=== PATIENT | female | born 1950 | race Caucasian/White ===

== ENCOUNTER → 2017-02-09 | Outpatient (CLI) | payer MEDICARE, OTHER ==
[~2017-02-09] MED LIST: OMNIPAQUE 350 MG/ML, 100ML BOTTLE ONE
== END | disposition home or self-care (01) ==
LOC: CFH 13:50
PROVIDERS: ATTEND Specialist
DX: C78.7 Secondary malignant neoplasm of liver and intrahepatic bile duct (principal); C77.1 Secondary and unspecified malignant neoplasm of intrathoracic lymph nodes; C56.2 Malignant neoplasm of left ovary; M48.56XA Collapsed vertebra, not elsewhere classified, lumbar region, initial encounter for fracture; N28.1 Cyst of kidney, acquired; E04.2 Nontoxic multinodular goiter
CPT/HCPCS: 71260; 74177; Q9967

== ENCOUNTER 2017-04-10 12:17 | Inpatient (IN) | payer OTHER ==
[~2017-04-10] VITALS: Ht 165.1 cm; Wt 93.9 kg
[2017-04-10] MEDS ORDERED: ONDANSETRON 2MG/ML, 2ML IVPush ONE (13:00)
[2017-04-10] MEDS ORDERED: SODIUM CHLORIDE 0.9% 1,000ML IVBOLUS ONE (13:00)
[2017-04-10] MEDS ORDERED: SODIUM CHLORIDE FLUSH 10ML SYR IVF ONE (13:00)
[2017-04-10] MEDS ORDERED: MORPHINE SULFATE 4 MG/ML, 1ML IVPush PRN (13:00)
[2017-04-10] MEDS ORDERED: ONDANSETRON 2MG/ML, 2ML ONE (13:06)
[2017-04-10 13:08] LABS: HEMATOCRIT 38.2 % (34.6-47.8); HEMOGLOBIN 12.4 g/dL (11.7-16.4)
[2017-04-10 13:20] LABS: ASPARTATE AMINO TRANSFERASE 196 U/L (15-37); BLOOD UREA NITROGEN 26 mg/dL (7-18)
[2017-04-10] MEDS ORDERED: KETOROLAC 30 MG/1 ML ONE (14:09)
[2017-04-10] MEDS ORDERED: KETOROLAC 30 MG/1 ML IVPush ONE (14:30)
[2017-04-10] MEDS ORDERED: CEFTRIAXONE PMX 1GM/50ML 50 ML IV ONE (15:00)
[2017-04-10] MEDS ORDERED: ATOR40TA78 PO (15:51)
[2017-04-10] MEDS ORDERED: SERT25TA PO (15:52)
[2017-04-10] MEDS ORDERED: TRAM50TA2 PO (15:52)
[2017-04-10] MEDS ORDERED: AMLO1CAP PO (15:52)
[2017-04-10] MEDS ORDERED: CEFTRIAXONE PMX 1GM/50ML 50 ML ONE (16:03)
[2017-04-10 16:20] VITALS: BP 111/79
[2017-04-10] MEDS ORDERED: hydrALAzine 20 MG/ML, 1ML IVPush PRN (17:00)
[2017-04-10] MEDS ORDERED: HYDROcodone/APAP 5/325 TABLET PO PRN (17:00)
[2017-04-10] MEDS ORDERED: morphine SULFATE 10 MG/ML, 1ML IVPush PRN (17:00)
[2017-04-10] MEDS: SODIUM CHLORIDE 0.9% 1,000 ML IV SCH (17:49)
[2017-04-10] MEDS: ENOXAPARIN 40 MG/0.4 ML SQ SCH (17:50)
[2017-04-10 19:50] VITALS: BP 133/70
[2017-04-10] MEDS: ATORVASTATIN 40 MG TABLET PO SCH (20:24)
[2017-04-10] MEDS: ONDANSETRON 2MG/ML, 2ML IVPush PRN (20:24)
[2017-04-11] MEDS: TEMAZEPAM 15 MG CAPSULE PO PRN ×2 (00:13→22:20)
[2017-04-11] MEDS: SODIUM CHLORIDE 0.9% 1,000 ML IV SCH ×4 (00:13→20:26)
[2017-04-11 02:35] VITALS: BP 116/81
[2017-04-11] MEDS: ACETAMINOPHEN 325 MG TABLET PO PRN ×2 (02:45→16:10)
[2017-04-11] MEDS: ONDANSETRON 2MG/ML, 2ML IVPush PRN ×3 (02:45→22:20)
[2017-04-11 05:19] LABS: HEMATOCRIT 32.7 % (34.6-47.8); HEMOGLOBIN 10.6 g/dL (11.7-16.4); WHITE BLOOD COUNT 17.7 x10^3/uL (3.4-10)
[2017-04-11 05:28] LABS: ASPARTATE AMINO TRANSFERASE 162 U/L (15-37); BLOOD UREA NITROGEN 30 mg/dL (7-18)
[2017-04-11] MEDS: AMLODIPINE 5 MG TABLET PO SCH (07:24)
[2017-04-11] MEDS: SERTRALINE 50MG TABLET PO SCH (07:24)
[2017-04-11 07:26] VITALS: BP 98/63
[2017-04-11] MEDS: BENAZEPRIL 20 MG TABLET PO SCH (07:26)
[2017-04-11 13:16] VITALS: BP 110/57
[2017-04-11] MEDS: ENOXAPARIN 40 MG/0.4 ML SQ SCH (16:05)
[2017-04-11] MEDS: CEFTRIAXONE PMX 2GM/50ML 50 ML IV SCH (16:06)
[2017-04-11] MEDS ORDERED: POTASSIUM PHOSPHATE 44 MEQ in SODIUM CHLORIDE 0.9% 500 ML IV ONE (17:00)
[2017-04-11] MEDS ORDERED: MAGNESIUM SULFATE PMX 2GM/50ML 50 ML IV ONE (17:00)
[2017-04-11 19:55] VITALS: BP 104/73
[2017-04-11] MEDS: ATORVASTATIN 40 MG TABLET PO SCH (22:21)
[2017-04-12] MEDS: SODIUM CHLORIDE 0.9% 1,000 ML IV SCH ×3 (01:13→15:50)
[2017-04-12 03:12] VITALS: BP 110/76
[2017-04-12] MEDS: ONDANSETRON 2MG/ML, 2ML IVPush PRN ×3 (04:17→19:22)
[2017-04-12 04:31] LABS: HEMOGLOBIN 10.1 g/dL (11.7-16.4); WHITE BLOOD COUNT 13.2 x10^3/uL (3.4-10)
[2017-04-12 04:49] LABS: BLOOD UREA NITROGEN 24 mg/dL (7-18)
[2017-04-12 07:09] VITALS: BP 92/59
[2017-04-12] MEDS ORDERED: OMNIPAQUE 350 MG/ML, 100ML BOTTLE ONE (08:42)
[2017-04-12] MEDS: BENAZEPRIL 20 MG TABLET PO SCH (08:48)
[2017-04-12] MEDS: AMLODIPINE 5 MG TABLET PO SCH (08:48)
[2017-04-12] MEDS: SERTRALINE 50MG TABLET PO SCH (08:49)
[2017-04-12 13:26] VITALS: BP 115/70
[2017-04-12] MEDS: CEFTRIAXONE PMX 2GM/50ML 50 ML IV SCH (15:50)
[2017-04-12] MEDS: ENOXAPARIN 40 MG/0.4 ML SQ SCH (15:59)
[2017-04-12] MEDS: TEMAZEPAM 15 MG CAPSULE PO PRN (19:22)
[2017-04-12] MEDS: ATORVASTATIN 40 MG TABLET PO SCH (19:22)
[2017-04-12 19:35] VITALS: BP 118/80
[2017-04-13] MEDS: SODIUM CHLORIDE 0.9% 1,000 ML IV SCH ×4 (00:16→21:14)
[2017-04-13 01:28] VITALS: BP 114/78
[2017-04-13] MEDS: ONDANSETRON 2MG/ML, 2ML IVPush PRN ×2 (04:07→17:34)
[2017-04-13 04:36] LABS: BLOOD UREA NITROGEN 17 mg/dL (7-18)
[2017-04-13 04:44] LABS: HEMOGLOBIN 9.9 g/dL (11.7-16.4); WHITE BLOOD COUNT 10.8 x10^3/uL (3.4-10)
[2017-04-13 07:26] VITALS: BP 121/83
[2017-04-13] MEDS: AMLODIPINE 5 MG TABLET PO SCH (08:48)
[2017-04-13] MEDS: BENAZEPRIL 20 MG TABLET PO SCH (08:48)
[2017-04-13] MEDS: SERTRALINE 50MG TABLET PO SCH (08:48)
[2017-04-13] MEDS ORDERED: MAGNESIUM SULFATE PMX 2GM/50ML 50 ML IV ONE (09:00)
[2017-04-13] MEDS: POTASSIUM PHOSPHATE 44 MEQ in SODIUM CHLORIDE 0.9% 500 ML IV SCH ×2 (09:28→15:00)
[2017-04-13 13:26] VITALS: BP 117/57
[2017-04-13] MEDS: ENOXAPARIN 40 MG/0.4 ML SQ SCH (16:43)
[2017-04-13] MEDS: CEFTRIAXONE PMX 2GM/50ML 50 ML IV SCH (16:43)
[2017-04-13 18:56] VITALS: BP 100/69
[2017-04-13] MEDS: ATORVASTATIN 40 MG TABLET PO SCH (19:55)
[2017-04-13] MEDS: TEMAZEPAM 15 MG CAPSULE PO PRN (21:15)
[2017-04-14 00:41] VITALS: BP 114/77
[2017-04-14] MEDS: SODIUM CHLORIDE 0.9% 1,000 ML IV SCH ×3 (03:24→20:23)
[2017-04-14 04:35] LABS: HEMATOCRIT 31.2 % (34.6-47.8); HEMOGLOBIN 10.3 g/dL (11.7-16.4); WHITE BLOOD COUNT 9.8 x10^3/uL (3.4-10)
[2017-04-14 04:46] LABS: ASPARTATE AMINO TRANSFERASE 172 U/L (15-37); BLOOD UREA NITROGEN 12 mg/dL (7-18)
[2017-04-14 07:00] VITALS: BP 123/76
[2017-04-14] MEDS ORDERED: POTASSIUM PHOSPHATE 44 MEQ in SODIUM CHLORIDE 0.9% 500 ML IV ONE (08:30)
[2017-04-14] MEDS ORDERED: PHOS250T3 PO (08:32)
[2017-04-14] MEDS ORDERED: MAGN400T26 PO (08:32)
[2017-04-14] MEDS ORDERED: ONDA4TAB13 SL (08:32)
[2017-04-14] MEDS ORDERED: LACT1CAP24 PO (08:32)
[2017-04-14] MEDS ORDERED: CEFD300C37 PO (08:32)
[2017-04-14] MEDS: SERTRALINE 50MG TABLET PO SCH (08:56)
[2017-04-14] MEDS: AMLODIPINE 5 MG TABLET PO SCH (08:56)
[2017-04-14] MEDS: BENAZEPRIL 20 MG TABLET PO SCH (08:56)
[2017-04-14 13:42] VITALS: BP 106/68
[2017-04-14] MEDS: CEFTRIAXONE PMX 2GM/50ML 50 ML IV SCH (15:53)
[2017-04-14] MEDS: ENOXAPARIN 40 MG/0.4 ML SQ SCH (17:47)
[2017-04-14 18:40] VITALS: BP 122/83
[2017-04-14] MEDS: ONDANSETRON 2MG/ML, 2ML IVPush PRN (20:23)
[2017-04-14] MEDS: ATORVASTATIN 40 MG TABLET PO SCH (21:31)
[2017-04-14] MEDS: TEMAZEPAM 15 MG CAPSULE PO PRN (21:31)
[2017-04-15 01:26] VITALS: BP 119/77
[2017-04-15] MEDS: SODIUM CHLORIDE 0.9% 1,000 ML IV SCH ×2 (02:45→11:30)
[2017-04-15 04:49] LABS: BLOOD UREA NITROGEN 11 mg/dL (7-18)
[2017-04-15 08:45] VITALS: BP 131/85
[2017-04-15] MEDS: BENAZEPRIL 20 MG TABLET PO SCH (09:24)
[2017-04-15] MEDS: AMLODIPINE 5 MG TABLET PO SCH (09:24)
[2017-04-15] MEDS: SERTRALINE 50MG TABLET PO SCH (09:24)
[2017-04-15] MEDS: ONDANSETRON 2MG/ML, 2ML IVPush PRN (11:37)
[2017-04-15 14:57] VITALS: BP 114/80
[2017-04-15] MEDS: ENOXAPARIN 40 MG/0.4 ML SQ SCH (18:01)
[2017-04-15 19:37] VITALS: BP 124/84
[2017-04-15] MEDS: ONDANSETRON ODT 4 MG PO PRN (22:05)
[2017-04-15] MEDS: TEMAZEPAM 15 MG CAPSULE PO PRN (22:43)
[2017-04-15] MEDS: CEFDINIR 300 MG CAPSULE PO SCH (22:43)
[2017-04-15] MEDS: ATORVASTATIN 40 MG TABLET PO SCH (22:43)
[2017-04-16 05:10] VITALS: BP 127/79
[2017-04-16 07:38] VITALS: BP 118/64
[2017-04-16] MEDS: CEFDINIR 300 MG CAPSULE PO SCH ×2 (08:00→20:59)
[2017-04-16] MEDS: SERTRALINE 50MG TABLET PO SCH (08:00)
[2017-04-16] MEDS: BENAZEPRIL 20 MG TABLET PO SCH (08:00)
[2017-04-16] MEDS: AMLODIPINE 5 MG TABLET PO SCH (08:00)
[2017-04-16] MEDS: ONDANSETRON ODT 4 MG PO PRN ×3 (11:21→23:47)
[2017-04-16 13:38] VITALS: BP 138/82
[2017-04-16] MEDS: ENOXAPARIN 40 MG/0.4 ML SQ SCH (17:00)
[2017-04-16 19:22] VITALS: BP 135/89
[2017-04-16] MEDS: ATORVASTATIN 40 MG TABLET PO SCH (20:59)
[2017-04-16] MEDS: TEMAZEPAM 15 MG CAPSULE PO PRN (20:59)
[2017-04-17 00:56] VITALS: BP 129/89
[2017-04-17] MEDS: ONDANSETRON ODT 4 MG PO PRN ×3 (06:16→20:09)
[2017-04-17 07:43] VITALS: BP 128/86
[2017-04-17] MEDS: AMLODIPINE 5 MG TABLET PO SCH (08:59)
[2017-04-17] MEDS: CEFDINIR 300 MG CAPSULE PO SCH ×2 (08:59→20:09)
[2017-04-17] MEDS: BENAZEPRIL 20 MG TABLET PO SCH (09:00)
[2017-04-17] MEDS: SERTRALINE 50MG TABLET PO SCH (09:00)
[2017-04-17 15:06] VITALS: BP 108/64
[2017-04-17] MEDS ORDERED: FUROSEMIDE 40 MG TABLET PO ONE (18:30)
[2017-04-17] MEDS ORDERED: FUROSEMIDE 20 MG TABLET PO ONE (18:30)
[2017-04-17] MEDS ORDERED: POTASSIUM CHLORIDE 20 MEQ TAB.ER.PRT PO ONE (18:30)
[2017-04-17] MEDS: ENOXAPARIN 40 MG/0.4 ML SQ SCH (18:38)
[2017-04-17 19:52] VITALS: BP 135/89
[2017-04-17] MEDS: ATORVASTATIN 40 MG TABLET PO SCH (20:09)
[2017-04-17 23:55] VITALS: BP 140/87
[2017-04-18] MEDS: ONDANSETRON 2MG/ML, 2ML IVPush PRN (02:30)
[2017-04-18] MEDS: ONDANSETRON ODT 4 MG PO PRN ×4 (02:33→19:57)
[2017-04-18 08:18] VITALS: BP 133/88
[2017-04-18] MEDS: SERTRALINE 50MG TABLET PO SCH (09:00)
[2017-04-18 10:10] LABS: BLOOD UREA NITROGEN 15 mg/dL (7-18)
[2017-04-18] MEDS: AMLODIPINE 5 MG TABLET PO SCH (10:11)
[2017-04-18] MEDS: CEFDINIR 300 MG CAPSULE PO SCH ×2 (10:11→19:58)
[2017-04-18] MEDS: BENAZEPRIL 20 MG TABLET PO SCH (10:12)
[2017-04-18] MEDS ORDERED: MAGNESIUM SULFATE PMX 4GM/100M 100 ML IV ONE (12:00)
[2017-04-18] MEDS ORDERED: FUROSEMIDE 40 MG/4 ML IV ONE (12:00)
[2017-04-18 14:35] VITALS: BP 126/89
[2017-04-18] MEDS: ENOXAPARIN 40 MG/0.4 ML SQ SCH (18:27)
[2017-04-18 19:49] VITALS: BP 126/86
[2017-04-18] MEDS: ATORVASTATIN 40 MG TABLET PO SCH (19:58)
[2017-04-19] MEDS: ONDANSETRON ODT 4 MG PO PRN ×3 (03:13→21:15)
[2017-04-19 03:16] VITALS: BP 127/84
[2017-04-19 05:02] LABS: BLOOD UREA NITROGEN 15 mg/dL (7-18)
[2017-04-19 07:12] VITALS: BP 129/83
[2017-04-19] MEDS: CEFDINIR 300 MG CAPSULE PO SCH ×2 (09:31→21:15)
[2017-04-19] MEDS: AMLODIPINE 5 MG TABLET PO SCH (09:31)
[2017-04-19] MEDS: SERTRALINE 50MG TABLET PO SCH (09:31)
[2017-04-19] MEDS: BENAZEPRIL 20 MG TABLET PO SCH (09:31)
[2017-04-19] MEDS: ONDANSETRON 2MG/ML, 2ML IVPush PRN (09:40)
[2017-04-19] MEDS ORDERED: POTASSIUM CHLORIDE 20 MEQ TAB.ER.PRT PO ONE (11:00)
[2017-04-19] MEDS: FUROSEMIDE 20 MG TABLET PO SCH (13:16)
[2017-04-19 13:20] VITALS: BP 117/81
[2017-04-19] MEDS: ENOXAPARIN 40 MG/0.4 ML SQ SCH (17:14)
[2017-04-19 18:57] VITALS: BP 139/91
[2017-04-19] MEDS: ATORVASTATIN 40 MG TABLET PO SCH (21:15)
[2017-04-19] MEDS: TEMAZEPAM 15 MG CAPSULE PO PRN (21:20)
[2017-04-20 01:32] VITALS: BP 140/84
[2017-04-20 05:00] LABS: BLOOD UREA NITROGEN 16 mg/dL (7-18)
[2017-04-20 07:15] VITALS: BP 124/84
[2017-04-20] MEDS: BENAZEPRIL 20 MG TABLET PO SCH (08:38)
[2017-04-20] MEDS: AMLODIPINE 5 MG TABLET PO SCH (08:38)
[2017-04-20] MEDS: FUROSEMIDE 20 MG TABLET PO SCH (08:38)
[2017-04-20] MEDS: CEFDINIR 300 MG CAPSULE PO SCH ×2 (08:38→20:28)
[2017-04-20] MEDS: SERTRALINE 50MG TABLET PO SCH (08:38)
[2017-04-20] MEDS: ONDANSETRON 2MG/ML, 2ML IVPush PRN ×2 (08:43→15:30)
[2017-04-20] MEDS ORDERED: FUROSEMIDE 40 MG/4 ML IV ONE (13:00)
[2017-04-20 13:08] VITALS: BP 117/82
[2017-04-20] MEDS ORDERED: POTA20PA PO (15:49)
[2017-04-20] MEDS ORDERED: FURO40TA6 PO (15:49)
[2017-04-20] MEDS ORDERED: BENA20TA2 PO (15:59)
[2017-04-20] MEDS: ENOXAPARIN 40 MG/0.4 ML SQ SCH (17:10)
[2017-04-20 19:27] VITALS: BP 126/87
[2017-04-20] MEDS: ATORVASTATIN 40 MG TABLET PO SCH (20:28)
[2017-04-20] MEDS: ONDANSETRON ODT 4 MG PO PRN (20:29)
== END 2017-04-20 21:08 | DRG 871 ==
LOC: ED 13:42 → EDIP 15:08 → 3NW 16:10
PROVIDERS: ADMIT Hospitalist; ATTEND Internal Medicine
PROC: 0T9B70Z Drainage of Bladder with Drainage Device, Via Natural or Artificial Opening (ICD-10-PCS; principal; 2017-04-10)
DX: A41.9 Sepsis, unspecified organism (principal); E43 Unspecified severe protein-calorie malnutrition; I50.33 Acute on chronic diastolic (congestive) heart failure; C78.02 Secondary malignant neoplasm of left lung; C78.01 Secondary malignant neoplasm of right lung; I11.0 Hypertensive heart disease with heart failure; C78.1 Secondary malignant neoplasm of mediastinum; M48.56XA Collapsed vertebra, not elsewhere classified, lumbar region, initial encounter for fracture; E87.1 Hypo-osmolality and hyponatremia; N39.0 Urinary tract infection, site not specified; C78.7 Secondary malignant neoplasm of liver and intrahepatic bile duct; C78.6 Secondary malignant neoplasm of retroperitoneum and peritoneum; E83.42 Hypomagnesemia; E78.00 Pure hypercholesterolemia, unspecified; E78.5 Hyperlipidemia, unspecified; E83.39 Other disorders of phosphorus metabolism; G47.00 Insomnia, unspecified; Z85.43 Personal history of malignant neoplasm of ovary; Z90.710 Acquired absence of both cervix and uterus; Z90.722 Acquired absence of ovaries, bilateral; Z68.34 Body mass index [BMI] 34.0-34.9, adult; F32.9 Major depressive disorder, single episode, unspecified; R19.7 Diarrhea, unspecified
CPT/HCPCS: 36415; 71010; 71260; 74177; 80048; 80053; 81001; 83605; 83735; 84100; 84145; 84443; 85025; 85610; 85730; 87040; 87086; 87324; 93005; 93306; 96361; 96374; 96375; J0696; J1650; J1885; J1940; J2405; Q0162; Q9967; J3475; J7030; J7040